=== PATIENT | male | born 1950 | race African-American/Black ===

== ENCOUNTER 2017-08-31 00:35 | Inpatient (IN) | payer MEDICARE, OTHER, MEDICAID ==
--- NOTE | 2017-08-31 00:51 | ED Physician Chart ---
ED Chief Complaint/HPI - Patient Information Date Seen:: 08/31/17 Time Seen:: 00:51 Chief Complaint:: Increased agitation History of Present Illness:: 67 yo male was brought from SNF to ER for evaluation of increased agitation and aggressiveness towards nursing staff. ED Review of Systems - Review of Systems General/Constitutional: No fever Skin: No skin lesions Head: No headache Eyes: No loss of vision ENT: No nasal drainage Neck: No neck pain Cardio Vascular: No chest pain Pulmonary: No SOB GI: No nausea, No vomiting Musculoskeletal: No bone or joint pain Psychiatric: Prior psych history Neurological: Seizure, Confusion ED Past Medical History - Past Medical History Past Medical History: HTN, Asthma/COPD, CVA/TIA, Dyslipidemia, Seizures, Other ( Dysphagia, osteoporosis, glaucoma, encephalopathy) Social History: Non Smoker, No Alcohol, No Drug Use Psychiatricy History: Other (psychosis) Family Medical History - Family Member Mother History Unknown: Yes Ethnicity: Unknown ED Physical Exam - Physical Examination Other Gen/Cons comments:: Patient is hard to arouse due to medication given at SNF. Head: Atraumatic Eyes: PERRL Skin: No ecchymosis ENMT: Nasal exam nl Neck: No nuchal rigidity Respiratory: No Wheeze/Rhonchi/Rales Cardio Vascular: RRR, No murmur, gallop, rubs, NL S1 S2 GI: No tenderness/rebounding/guarding Extremities: No edema Other Neuro/Psych comments:: obtunded ED Labs/Radiology/EKG Results - Radiology Results Results: CXR: no acute disease ED Assessment - Assessment General Assessment: Psychosis Hyponatremia Assessment/Comments:: CBC, CMP, UA CXR, EKG NS 1L IV bolus Patient is cleared for geropsych admit ED Septic Shock - . Is Septic Shock (SBP<90, OR Lactate>4 mmol\L) present?: No ED Reassessment (Disposition) - Reassessment Reassessment Condition:: Unchanged - Patient Disposition Discharge/Transfer:: Geropsych w/in this hosp Admitting Medical Physician:: De Michaud Admitting Psych Physician:: Ally Ott ED Discharge Plan - Patient Disposition Admit/Discharge/Transfer: Other Care w/in this hosp Condition at Disposition: Guarded
[2017-08-31 01:26] LABS: % BASOPHILS 0.8 % (0.0-2.0); % EOSINOPHILS 3.6 % (0.0-5.0); % LYMPHOCYTES 19.6 % (20.0-50.0); % MONOCYTES 10.8 % (2.0-10.0); % NEUTROPHILS 65.2 % (40.0-80.0); BASOPHILE ABSOLUTE 0.1 Th/cumm (0-0.2); EOSINOPHILE ABSOLUTE 0.3 Th/cmm (0.1-0.4); HEMATOCRIT 40.5 % (41.0-60); HEMOGLOBIN 13.7 gm/dL (12-16); LYMPHOCYTE ABSOLUTE 1.4 Th/cmm (1.5-3.0); MEAN CELL VOLUME 93.2 fl (80-99); MEAN CORPUSCULAR HEMOGLOBIN 31.6 pg (27.0-31.0); MEAN CORPUSCULAR HGB CONC 33.9 pg (28.0-36.0); MEAN PLATELET VOLUME 7.3 fl; MONOCYTE ABSOLUTE 0.8 Th/cmm (0.3-1.0); NEUTROPHILE ABSOLUTE 4.4 Th/cmm (1.8-8.0); PLATELET COUNT 256 Th/cmm (150-400); RED BLOOD COUNT 4.35 Mil/cmm (3.80-5.80); RED CELL DISTRIBUTION WIDTH 13.5 % (11.5-20.0)
[2017-08-31 01:39] LABS: ALB/GLOB RATIO 1.8 (1.0-1.8); ALBUMIN 3.7 gm/dL (4.2-5.5); ALKALINE PHOSPHATASE 57 U/L (34-104); ANION GAP 9.9 (7.0-16.0); BILIRUBIN,TOTAL 0.3 mg/dL (0.3-1.0); BUN - UREA NITROGEN 8 mg/dL (7-25); CALCIUM SERUM 8.6 mg/dL (8.6-10.3); CARBON DIOXIDE 23.7 mEq/L (21.0-31.0); CHLORIDE 100 mEq/L (98-107); CREATININE - SERUM 0.5 mg/dL (0.7-1.3); GFR AFRICAN-AMERICAN > 60.0 ml/min (>90); GFR NON AFRICAN-AMERICAN > 60.0 ml/min; GLUCOSE 118 mg/dL (70-105); POTASSIUM SERUM 3.6 mEq/L (3.5-5.1); SGOT 23 U/L (13-39); SGPT/ALT 13 U/L (7-52); SODIUM SERUM 130 mEq/L (136-145); TOTAL PROTEIN,SERUM 5.8 gm/dL (6.0-8.3)
[2017-08-31] MEDS ORDERED: Sodium Chloride 0.9% 1,000 ML IV ONE (01:56)
[2017-08-31] MEDS ORDERED: Magnesium Hydroxide (MOM) 30 mL UDC PO PRN (02:15)
[2017-08-31] MEDS ORDERED: Maalox 30 mL Cup PO PRN (02:15)
[2017-08-31] MEDS ORDERED: Albuterol Nebulizer 2.5mg/3mL HHN PRN (02:20)
[2017-08-31] MEDS ORDERED: Hydrocodone/APAP 10 mg/325 mg Tab PO PRN (02:20)
[2017-08-31 02:26] VITALS: BP 125/78
--- NOTE | 2017-08-31 07:57 | Diagnostic Imaging Report ---
Exam: Chest x-ray single view. HISTORY: Shortness of breath. Findings: Frontal examination of chest reviewed the study demonstrates no acute pulmonic infiltrates or effusions. Mediastinal structures midline the heart is not enlarged. Bony thorax is intact. The patient significantly rotated. Left atelectatic changes cannot be excluded. If clinically indicated follow-up examination recommended. IMPRESSION: Significant rotation of patient, no acute disease, left basilar atelectasis cannot be excluded.
[2017-08-31] MEDS: Aspirin 81mg Chewable Tab PO SCH (08:13)
[2017-08-31] MEDS: Multivitamin w/ Minerals Tab PO SCH (08:13)
--- NOTE | 2017-08-31 13:54 | History and Physical ---
History of Present Illness - HPI Chief Complaint: agitation HPI: This is a 67 year old male who is a residential resident admitted to the geropsych unit due to agitation towards nursing staff at the SNF. Vital Signs: Last Vital Signs Temp 97.6 F 08/31/17 06:56 Pulse 84 08/31/17 09:12 Resp 18 08/31/17 07:50 BP 130/82 08/31/17 09:12 Pulse Ox 96 08/31/17 07:50 Past Medical History Other History: HTN, Asthma/COPD, CVA/TIA, Dyslipidemia, Seizures, Dysphagia, osteoporosis, glaucoma, encephalopathy Family Medical History - Family Member Mother History Unknown: Yes Ethnicity: Unknown Living Status: Unknown Hx Family Cancer: (unknown) Hx Family Coronary Artery Disease: (unknown) Hx Family Congestive Heart Failure: (unknown) Hx Family Hypertension: (unknown) Hx Family Stroke: (unknown) Hx Family Diabetes: (unknown) Hx Family Seizures: (unknown) Hx Family Dementia: (unknown) Hx Family AIDS: (unknown) Hx Family HIV: No Hx Family COPD: (unknown) Hx Family Hepatitis: (unknown) Hx Family Psychiatric Problems: (unknown) Hx Family Tuberculosis: (unknown) Social History Smoke: No Alcohol: None Drugs: None Lives: Custodial - Medications Home Medications: Home Medication Medication Instructions Recorded Type Albuterol Nebulizer 2.5mg/3mL 2.5 mg IH Q6HR PRN 08/31/17 History [Albuterol Neb UD*] Aspirin [Aspirin Chewable] 81 mg PO DAILY 08/31/17 History Atorvastatin Calcium [Lipitor] 80 mg PO HS 08/31/17 History Docusate Sodium [Colace] 100 mg PO DAILY 08/31/17 History Gabapentin 300 mg PO DAILY 08/31/17 History Hydrocodone/APAP 10 mg/325 mg 1 tab PO Q8H PRN 08/31/17 History [[place] 10 mg/325 mg] Labetalol HCl 300 mg PO BID 08/31/17 History Latanoprost 0.005% Ophth Soln 1 drop EACH EYE HS 08/31/17 History [Xalatan 0.005% Ophth Soln] Levetiracetam [Keppra] 750 mg PO BID 08/31/17 History Multivitamin w/ Minerals 1 tab PO DAILY 08/31/17 History [Theragran M] Polyvinyl Alcohol Ophth Soln 1 drop EACH EYE Q2H PRN 08/31/17 History [Artificial Tears Ophth Soln] Sennosides A and B [Senna] 8.6 mg PO HS 08/31/17 History - Allergies Allergies/Adverse Reactions: Allergies Allergy/AdvReac Type Severity Reaction Status Date / Time No Known Allergies Allergy Verified 08/31/17 01:00 Review of Systems - Review of Systems Constitutional: Report: No Significant Eyes: Report: No Significant ENT: Report: No Significant Respiratory: Report: No Significant Cardiovascular: Report: No Significant Gastrointestinal: Report: No Significant Genitourinary: Report: No Significant Musculoskeletal: Report: No Significant Skin: Report: No Significant Neurological: Report: No Significant Physical Exam - Physical Exam HEENT: Report: Ears Nose Throat within normal limits Neck: Report: Within normal limits Cardiovascular Systems: Report: +s1/s2 noted Respiratory: Report: Breath Sounds are within normal limits Abdomen: Report: Non-tender to palpation Back: Report: Inspection of back is within normal limits. Extremities: Report: Non-tender to palpation. Skin: Report: Color of skin is within normal limits Neuro/Psych: Report: Mood affect is within normal limits - Assessment Assessment: HTN Asthma/COPD hx CVA/TIA Dyslipidemia Seizures Dysphagia osteoporosis glaucoma - Plan Plan: seizure precautions aspiration precautions continue current plan of care
--- NOTE | 2017-08-31 23:46 | Psychosocial Evaluation ---
DATE OF SERVICE: 08/31/2017 IDENTIFYING DATA: The patient is a 67-year-old -[place] male, resident of [facility]. Information is obtained by directly interviewing the patient as well as reviewing the admission papers. The patient is admitted here on a voluntary basis in view of his agitation and aggressive behavior towards the staff members. His chart is reviewed. The patient is interviewed. The patient is lying down in the bed and has been mumbling to self. The patient's articulation is not very clear. The patient, however, mentioned that he had a stroke and he has been at a [facility]. The patient mentions that his family is aware that he is in the hospital. Prior to the hospitalization, the patient has been on gabapentin 300 mg daily and is also getting albuterol and atorvastatin. The patient is also on high blood pressure medication and labetalol. The patient is stating that he has been getting easily upset and could not figure it out and that is the reason why he has to be in here. The patient at this time is not able to provide much of the information. PAST PSYCHIATRIC HISTORY: Details are not known. MEDICAL HISTORY: Physical examination is requested to be done by Dr. Michaud. SUBSTANCE ABUSE HISTORY: None. PHYSICAL OR SEXUAL ABUSE HISTORY: None. LEGAL PROBLEMS: None at this time. STRENGTH AND ASSETS: The patient is motivated. MENTAL STATUS EXAMINATION: The patient is a 67-year-old, looking his stated age, superficially cooperative. Eye contact is fair. Mood is irritable. Affect is constricted. The patient is feeling frustrated. The patient's coping skills at this time are noted to be very poor. Insight and judgment are noted to be very poor. He could not figure it out why he has been losing the temper. The patient is currently on gabapentin and we have him on Ativan on a p.r.n. basis. The patient is going to be closely monitored and assessed for impulse control problems. DIAGNOSTIC IMPRESSION: 1. Depressive disorder, not otherwise specified. 1B. Mood disorder, not otherwise specified. AXIS II: None. AXIS III: As per Dr. Michaud. IMMEDIATE TREATMENT PLAN: The patient is going to be closely monitored on the inpatient unit and provided with supportive psychotherapy. Once stabilized, the patient is going to be discharged to the facility for followup on an outpatient basis. JOB# [id number]
[2017-09-01] MEDS: Multivitamin w/ Minerals Tab PO SCH (09:05)
[2017-09-01] MEDS: Aspirin 81mg Chewable Tab PO SCH (09:06)
[2017-09-01] MEDS: Polyvinyl Alcohol Ophth Soln 15 mL Bottle EACH EYE PRN ×2 (09:18→20:57)
--- NOTE | 2017-09-01 13:35 | Internal Medicine Prog Note ---
Internal Medicine Subjective - Subjective Service Date: 09/01/17 Patient seen and examined:: with staff Patient is:: awake Per staff patient has:: no adverse event, tolerating meds Internal Medicine Objective - Results Result Diagrams: 08/31/17 01:04 08/31/17 01:04 Recent Labs: Laboratory Last Values WBC 7.0 Th/cmm (4.8-10.8) 08/31/17 01:04 RBC 4.35 Mil/cmm (3.80-5.80) 08/31/17 01:04 Hgb 13.7 gm/dL (12-16) 08/31/17 01:04 Hct 40.5 % (41.0-60) L 08/31/17 01:04 MCV 93.2 fl (80-99) 08/31/17 01:04 MCH 31.6 pg (27.0-31.0) H 08/31/17 01:04 MCHC Differential 33.9 pg (28.0-36.0) 08/31/17 01:04 RDW 13.5 % (11.5-20.0) 08/31/17 01:04 Plt Count 256 Th/cmm (150-400) 08/31/17 01:04 MPV 7.3 fl 08/31/17 01:04 Neutrophils % 65.2 % (40.0-80.0) 08/31/17 01:04 Lymphocytes % 19.6 % (20.0-50.0) L 08/31/17 01:04 Monocytes % 10.8 % (2.0-10.0) H 08/31/17 01:04 Eosinophils % 3.6 % (0.0-5.0) 08/31/17 01:04 Basophils % 0.8 % (0.0-2.0) 08/31/17 01:04 Sodium 130 mEq/L (136-145) L 08/31/17 01:04 Potassium 3.6 mEq/L (3.5-5.1) 08/31/17 01:04 Chloride 100 mEq/L (98-107) 08/31/17 01:04 Carbon Dioxide 23.7 mEq/L (21.0-31.0) 08/31/17 01:04 Anion Gap 9.9 (7.0-16.0) 08/31/17 01:04 BUN 8 mg/dL (7-25) 08/31/17 01:04 Creatinine 0.5 mg/dL (0.7-1.3) L 08/31/17 01:04 Est GFR ( Amer) > 60.0 ml/min (>90) 08/31/17 01:04 Est GFR (Non-Af Amer) > 60.0 ml/min 08/31/17 01:04 BUN/Creatinine Ratio 16.0 08/31/17 01:04 Glucose 118 mg/dL (70-105) H 08/31/17 01:04 Calcium 8.6 mg/dL (8.6-10.3) 08/31/17 01:04 Total Bilirubin 0.3 mg/dL (0.3-1.0) 08/31/17 01:04 AST 23 U/L (13-39) 08/31/17 01:04 ALT 13 U/L (7-52) 08/31/17 01:04 Alkaline Phosphatase 57 U/L (34-104) 08/31/17 01:04 Total Protein 5.8 gm/dL (6.0-8.3) L 08/31/17 01:04 Albumin 3.7 gm/dL (4.2-5.5) L 08/31/17 01:04 Globulin 2.1 gm/dL 08/31/17 01:04 Albumin/Globulin Ratio 1.8 (1.0-1.8) 08/31/17 01:04 TSH 0.79 uIU/ml (0.34-5.60) 08/31/17 01:04 - Physical Exam Vitals and I&O: Vital Signs Temp 98.0 F 08/31/17 20:00 Pulse 71 09/01/17 09:11 Resp 18 09/01/17 08:00 BP 126/81 09/01/17 09:11 Pulse Ox 97 09/01/17 07:21 Active Medications: Current Medications Acetaminophen (Tylenol) 650 mg PO Q4HR PRN PRN Reason: Mild Pain / Temp above 100 Stop: 10/30/17 02:14 Acetaminophen/Hydrocodone Bitart ([place] 10 Mg/325 Mg) 1 tab PO Q8H PRN PRN Reason: Pain (Moderate) Stop: 03/18/18 02:19 Al Hydrox/Mg Hydrox/Simethicone (Maalox) 30 ml PO Q4HR PRN PRN Reason: GI DISTRESS Stop: 10/30/17 02:14 Albuterol Sulfate (Albuterol 2.5mg/3ml Neb Ud) 2.5 mg HHN Q6HR PRN PRN Reason: Shortness of Breath Stop: 10/30/17 02:19 Artificial Tears (Artificial Tears Ophth Soln) 1 drop EACH EYE Q2H PRN PRN Reason: DRY EYES Stop: 10/30/17 02:19 Last Admin: 09/01/17 09:18 Dose: 1 drop Aspirin (Aspirin Chewable) 81 mg PO DAILY REBECCA Stop: 10/30/17 08:59 Last Admin: 09/01/17 09:06 Dose: 81 mg Atorvastatin Calcium (Lipitor) 80 mg PO HS REBECCA PRN Reason: Protocol Stop: 10/30/17 20:59 Last Admin: 08/31/17 21:09 Dose: 80 mg Citalopram Hydrobromide (Celexa) 10 mg PO DAILY REBECCA PRN Reason: Protocol Stop: 10/31/17 08:59 Last Admin: 09/01/17 12:41 Dose: Not Given Docusate Sodium (Colace) 100 mg PO DAILY REBECCA Stop: 10/30/17 08:59 Last Admin: 09/01/17 09:05 Dose: 100 mg Gabapentin (Neurontin) 300 mg PO DAILY REBECCA Stop: 10/30/17 08:59 Last Admin: 09/01/17 09:05 Dose: 300 mg Labetalol HCl (Trandate) 300 mg PO Q12HR REBECCA Stop: 10/30/17 08:59 Last Admin: 09/01/17 09:11 Dose: 300 mg Latanoprost (Xalatan 0.005% Ophth Soln) 1 drop EACH EYE HS REBECCA Stop: 10/30/17 20:59 Last Admin: 08/31/17 21:09 Dose: 1 drop Levetiracetam (Keppra) 750 mg PO Q12HR REBECCA Stop: 10/30/17 08:59 Last Admin: 09/01/17 09:05 Dose: 750 mg Lorazepam (Ativan) 0.5 mg PO Q4HR PRN; Protocol PRN Reason: Anxiety Stop: 09/30/17 02:14 Magnesium Hydroxide (Milk Of Magnesia) 30 ml PO HS PRN PRN Reason: Constipation Senna (Senna) 8.6 mg PO HS REBECCA Stop: 10/30/17 20:59 Last Admin: 08/31/17 21:09 Dose: 8.6 mg Zolpidem Tartrate (Ambien) 5 mg PO HS PRN PRN Reason: Insomnia Stop: 10/30/17 02:14 General: alert HEENT: NC/AT, PERRLA Neck: Supple Lungs: CTAB Cardiovascular: RRR, Normal S1, Normal S2, without murmur Internal Medicine Assmt/Plan - Assessment Assessment: HTN Asthma/COPD hx CVA/TIA Dyslipidemia Seizures Dysphagia osteoporosis glaucoma - Plan Plan: seizure precautions aspiration precautions continue current plan of care
--- NOTE | 2017-09-01 14:41 | Progress Notes ---
DATE: 09/01/2017 SUBJECTIVE: Staff was spoken to. The patient is interviewed. Mood is noted to be irritable. Affect is constricted. The patient's insight and judgment are noted to be still impaired. The patient has a tendency to lose temper. The patient, however, has been able to comply with the treatment. The patient is stating that he is feeling frustrated after the stroke and has been having difficult time to deal with life. Coping skills at this time are noted to be very poor. Sleep and appetite are also noted to be impaired. The patient is currently here because of the impulsivity, screaming and yelling behavior. ASSESSMENT: The patient is still depressed. PLAN: To start the patient on low dose of the Celexa and encouraged the patient to verbalize the concerns rather than to act out. The patient is going to be provided with the supportive therapy and the patient is going to be closely monitored. [facility]# [id number]
[2017-09-02] MEDS: Multivitamin w/ Minerals Tab PO SCH (08:56)
[2017-09-02] MEDS: Aspirin 81mg Chewable Tab PO SCH (08:57)
--- NOTE | 2017-09-02 14:09 | Internal Medicine Prog Note ---
Internal Medicine Subjective - Subjective Service Date: 09/02/17 Patient is:: awake Per staff patient has:: no adverse event, tolerating meds Internal Medicine Objective - Results Result Diagrams: 08/31/17 01:04 08/31/17 01:04 Recent Labs: Laboratory Last Values WBC 7.0 Th/cmm (4.8-10.8) 08/31/17 01:04 RBC 4.35 Mil/cmm (3.80-5.80) 08/31/17 01:04 Hgb 13.7 gm/dL (12-16) 08/31/17 01:04 Hct 40.5 % (41.0-60) L 08/31/17 01:04 MCV 93.2 fl (80-99) 08/31/17 01:04 MCH 31.6 pg (27.0-31.0) H 08/31/17 01:04 MCHC Differential 33.9 pg (28.0-36.0) 08/31/17 01:04 RDW 13.5 % (11.5-20.0) 08/31/17 01:04 Plt Count 256 Th/cmm (150-400) 08/31/17 01:04 MPV 7.3 fl 08/31/17 01:04 Neutrophils % 65.2 % (40.0-80.0) 08/31/17 01:04 Lymphocytes % 19.6 % (20.0-50.0) L 08/31/17 01:04 Monocytes % 10.8 % (2.0-10.0) H 08/31/17 01:04 Eosinophils % 3.6 % (0.0-5.0) 08/31/17 01:04 Basophils % 0.8 % (0.0-2.0) 08/31/17 01:04 Sodium 130 mEq/L (136-145) L 08/31/17 01:04 Potassium 3.6 mEq/L (3.5-5.1) 08/31/17 01:04 Chloride 100 mEq/L (98-107) 08/31/17 01:04 Carbon Dioxide 23.7 mEq/L (21.0-31.0) 08/31/17 01:04 Anion Gap 9.9 (7.0-16.0) 08/31/17 01:04 BUN 8 mg/dL (7-25) 08/31/17 01:04 Creatinine 0.5 mg/dL (0.7-1.3) L 08/31/17 01:04 Est GFR ( Amer) > 60.0 ml/min (>90) 08/31/17 01:04 Est GFR (Non-Af Amer) > 60.0 ml/min 08/31/17 01:04 BUN/Creatinine Ratio 16.0 08/31/17 01:04 Glucose 118 mg/dL (70-105) H 08/31/17 01:04 Calcium 8.6 mg/dL (8.6-10.3) 08/31/17 01:04 Total Bilirubin 0.3 mg/dL (0.3-1.0) 08/31/17 01:04 AST 23 U/L (13-39) 08/31/17 01:04 ALT 13 U/L (7-52) 08/31/17 01:04 Alkaline Phosphatase 57 U/L (34-104) 08/31/17 01:04 Total Protein 5.8 gm/dL (6.0-8.3) L 08/31/17 01:04 Albumin 3.7 gm/dL (4.2-5.5) L 08/31/17 01:04 Globulin 2.1 gm/dL 08/31/17 01:04 Albumin/Globulin Ratio 1.8 (1.0-1.8) 08/31/17 01:04 TSH 0.79 uIU/ml (0.34-5.60) 08/31/17 01:04 - Physical Exam Vitals and I&O: Vital Signs Temp 97.8 F 09/01/17 20:00 Pulse 83 09/02/17 08:56 Resp 18 09/01/17 21:22 BP 131/86 09/02/17 08:56 Pulse Ox 97 09/01/17 21:22 Intake & Output 09/01/17 09/02/17 09/02/17 18:59 06:59 18:59 Intake Total 120 Balance 120 Intake: Oral 120 Other: # Voids 2 Active Medications: Current Medications Acetaminophen (Tylenol) 650 mg PO Q4HR PRN PRN Reason: Mild Pain / Temp above 100 Stop: 10/30/17 02:14 Acetaminophen/Hydrocodone Bitart ([place] 10 Mg/325 Mg) 1 tab PO Q8H PRN PRN Reason: Pain (Moderate) Stop: 10/30/17 02:19 Al Hydrox/Mg Hydrox/Simethicone (Maalox) 30 ml PO Q4HR PRN PRN Reason: GI DISTRESS Stop: 10/30/17 02:14 Albuterol Sulfate (Albuterol 2.5mg/3ml Neb Ud) 2.5 mg HHN Q6HR PRN PRN Reason: Shortness of Breath Stop: 10/30/17 02:19 Artificial Tears (Artificial Tears Ophth Soln) 1 drop EACH EYE Q2H PRN PRN Reason: DRY EYES Stop: 10/30/17 02:19 Last Admin: 09/01/17 20:57 Dose: 1 drop Aspirin (Aspirin Chewable) 81 mg PO DAILY REBECCA Stop: 10/30/17 08:59 Last Admin: 09/02/17 08:57 Dose: 81 mg Atorvastatin Calcium (Lipitor) 80 mg PO HS REBECCA PRN Reason: Protocol Stop: 10/30/17 20:59 Last Admin: 09/01/17 20:56 Dose: 80 mg Citalopram Hydrobromide (Celexa) 10 mg PO DAILY REBECCA PRN Reason: Protocol Stop: 10/31/17 08:59 Last Admin: 09/02/17 11:10 Dose: 10 mg Docusate Sodium (Colace) 100 mg PO DAILY REBECCA Stop: 10/30/17 08:59 Last Admin: 09/02/17 08:57 Dose: 100 mg Gabapentin (Neurontin) 300 mg PO DAILY REBECCA Stop: 10/30/17 08:59 Last Admin: 09/02/17 08:56 Dose: 300 mg Labetalol HCl (Trandate) 300 mg PO Q12HR REBECCA Stop: 10/30/17 08:59 Last Admin: 09/02/17 08:56 Dose: 300 mg Latanoprost (Xalatan 0.005% Ophth Soln) 1 drop EACH EYE HS REBECCA Stop: 10/30/17 20:59 Last Admin: 09/01/17 20:57 Dose: 1 drop Levetiracetam (Keppra) 750 mg PO Q12HR REBECCA Stop: 10/30/17 08:59 Last Admin: 09/02/17 08:56 Dose: 750 mg Lorazepam (Ativan) 0.5 mg PO Q4HR PRN; Protocol PRN Reason: Anxiety Stop: 09/30/17 02:14 Magnesium Hydroxide (Milk Of Magnesia) 30 ml PO HS PRN PRN Reason: Constipation Senna (Senna) 8.6 mg PO HS REBECCA Stop: 10/30/17 20:59 Last Admin: 09/01/17 20:57 Dose: 8.6 mg Zolpidem Tartrate (Ambien) 5 mg PO HS PRN PRN Reason: Insomnia Stop: 10/30/17 02:14 General: alert HEENT: NC/AT, PERRLA Neck: Supple Lungs: CTAB Cardiovascular: RRR, Normal S1, Normal S2, without murmur Internal Medicine Assmt/Plan - Assessment Assessment: HTN Asthma/COPD hx CVA/TIA Dyslipidemia Seizures Dysphagia osteoporosis glaucoma - Plan Plan: seizure precautions aspiration precautions continue current plan of care
--- NOTE | 2017-09-02 22:43 | Progress Notes ---
DATE: 09/02/2017 SUBJECTIVE: Staff was spoken to. The patient is interviewed. The patient is screaming and yelling, stating that he has diabetes and he cannot walk and he needs a couple of dollars to leave the facility. The patient has no insight into his illness. Coping skills are noted to be very poor. Sleep and appetite also noted to be very poor. The patient is currently on 10 mg citalopram and we will continue the medication and encouraged the patient to verbalize the concerns rather than to act out. Please note that the patient is not ready to be discharged to a lower level of care yet. JOB# [id number]
[2017-09-03] MEDS: Aspirin 81mg Chewable Tab PO SCH (09:42)
[2017-09-03] MEDS: Multivitamin w/ Minerals Tab PO SCH (09:42)
--- NOTE | 2017-09-03 13:07 | Progress Notes ---
DATE: 09/03/2017 SUBJECTIVE: Staff was spoken to. The patient is interviewed. Mood is noted to be anxious and depressed. Affect is constricted. The patient is very withdrawn this morning. Coping skills are noted to be still poor. Insight and judgment also noted to be impaired. No side effects to the medications are noted. The patient has been able to comply with the medication yesterday. The patient has been screaming and yelling and stating that he needs couple of dollars to catch a bus to go to home, but that this morning he seems to be calm. No side effects to the medications are noted. ASSESSMENT: The patient is still having difficult time to cope with the stress. PLAN: To continue the patient with the supportive therapy. I encouraged the patient to verbalize the concerns. The patient is currently on Celexa 10 mg. We will continue the medication and followup. JOB# [id number]
--- NOTE | 2017-09-03 15:55 | Internal Medicine Prog Note ---
Internal Medicine Subjective - Subjective Service Date: 09/03/17 Patient seen and examined:: with staff Patient is:: awake Per staff patient has:: no adverse event, tolerating meds Internal Medicine Objective - Results Result Diagrams: 08/31/17 01:04 08/31/17 01:04 Recent Labs: Laboratory Last Values WBC 7.0 Th/cmm (4.8-10.8) 08/31/17 01:04 RBC 4.35 Mil/cmm (3.80-5.80) 08/31/17 01:04 Hgb 13.7 gm/dL (12-16) 08/31/17 01:04 Hct 40.5 % (41.0-60) L 08/31/17 01:04 MCV 93.2 fl (80-99) 08/31/17 01:04 MCH 31.6 pg (27.0-31.0) H 08/31/17 01:04 MCHC Differential 33.9 pg (28.0-36.0) 08/31/17 01:04 RDW 13.5 % (11.5-20.0) 08/31/17 01:04 Plt Count 256 Th/cmm (150-400) 08/31/17 01:04 MPV 7.3 fl 08/31/17 01:04 Neutrophils % 65.2 % (40.0-80.0) 08/31/17 01:04 Lymphocytes % 19.6 % (20.0-50.0) L 08/31/17 01:04 Monocytes % 10.8 % (2.0-10.0) H 08/31/17 01:04 Eosinophils % 3.6 % (0.0-5.0) 08/31/17 01:04 Basophils % 0.8 % (0.0-2.0) 08/31/17 01:04 Sodium 130 mEq/L (136-145) L 08/31/17 01:04 Potassium 3.6 mEq/L (3.5-5.1) 08/31/17 01:04 Chloride 100 mEq/L (98-107) 08/31/17 01:04 Carbon Dioxide 23.7 mEq/L (21.0-31.0) 08/31/17 01:04 Anion Gap 9.9 (7.0-16.0) 08/31/17 01:04 BUN 8 mg/dL (7-25) 08/31/17 01:04 Creatinine 0.5 mg/dL (0.7-1.3) L 08/31/17 01:04 Est GFR ( Amer) > 60.0 ml/min (>90) 08/31/17 01:04 Est GFR (Non-Af Amer) > 60.0 ml/min 08/31/17 01:04 BUN/Creatinine Ratio 16.0 08/31/17 01:04 Glucose 118 mg/dL (70-105) H 08/31/17 01:04 Calcium 8.6 mg/dL (8.6-10.3) 08/31/17 01:04 Total Bilirubin 0.3 mg/dL (0.3-1.0) 08/31/17 01:04 AST 23 U/L (13-39) 08/31/17 01:04 ALT 13 U/L (7-52) 08/31/17 01:04 Alkaline Phosphatase 57 U/L (34-104) 08/31/17 01:04 Total Protein 5.8 gm/dL (6.0-8.3) L 08/31/17 01:04 Albumin 3.7 gm/dL (4.2-5.5) L 08/31/17 01:04 Globulin 2.1 gm/dL 08/31/17 01:04 Albumin/Globulin Ratio 1.8 (1.0-1.8) 08/31/17 01:04 TSH 0.79 uIU/ml (0.34-5.60) 08/31/17 01:04 Levetiracetam 25.2 ug/mL (10.0-40.0) 08/31/17 01:04 - Physical Exam Vitals and I&O: Vital Signs Temp 96.7 F 09/02/17 08:00 Pulse 79 09/03/17 10:05 Resp 14 09/03/17 08:42 BP 101/69 09/03/17 10:05 Pulse Ox 94 09/03/17 08:35 Intake & Output 09/02/17 09/03/17 09/03/17 18:59 06:59 18:59 Intake Total 750 Balance 750 Intake: Oral 750 Other: # Voids 3 # Bowel Movements 1 Active Medications: Current Medications Acetaminophen (Tylenol) 650 mg PO Q4HR PRN PRN Reason: Mild Pain / Temp above 100 Stop: 10/30/17 02:14 Acetaminophen/Hydrocodone Bitart ([place] 10 Mg/325 Mg) 1 tab PO Q8H PRN PRN Reason: Pain (Moderate) Stop: 10/30/17 02:19 Al Hydrox/Mg Hydrox/Simethicone (Maalox) 30 ml PO Q4HR PRN PRN Reason: GI DISTRESS Stop: 10/30/17 02:14 Albuterol Sulfate (Albuterol 2.5mg/3ml Neb Ud) 2.5 mg HHN Q6HR PRN PRN Reason: Shortness of Breath Stop: 10/30/17 02:19 Artificial Tears (Artificial Tears Ophth Soln) 1 drop EACH EYE Q2H PRN PRN Reason: DRY EYES Stop: 10/30/17 02:19 Last Admin: 09/01/17 20:57 Dose: 1 drop Aspirin (Aspirin Chewable) 81 mg PO DAILY COUNT [facility]CLUD[facility] Stop: 10/30/17 08:59 Last Admin: 09/03/17 09:42 Dose: 81 mg Atorvastatin Calcium (Lipitor) 80 mg PO HS REBECCA PRN Reason: Protocol Stop: 10/30/17 20:59 Last Admin: 09/02/17 21:09 Dose: 80 mg Citalopram Hydrobromide (Celexa) 10 mg PO DAILY REBECCA PRN Reason: Protocol Stop: 10/31/17 08:59 Last Admin: 09/03/17 09:41 Dose: 10 mg Docusate Sodium (Colace) 100 mg PO DAILY REBECCA Stop: 10/30/17 08:59 Last Admin: 09/03/17 09:42 Dose: 100 mg Gabapentin (Neurontin) 300 mg PO DAILY REBECCA Stop: 10/30/17 08:59 Last Admin: 09/03/17 09:42 Dose: 300 mg Labetalol HCl (Trandate) 300 mg PO Q12HR REBECCA Stop: 10/30/17 08:59 Last Admin: 09/03/17 08:36 Dose: Not Given Latanoprost (Xalatan 0.005% Ophth Soln) 1 drop EACH EYE HS REBECCA Stop: 10/30/17 20:59 Last Admin: 09/02/17 21:09 Dose: 1 drop Levetiracetam (Keppra) 750 mg PO Q12HR REBECCA Stop: 10/30/17 08:59 Last Admin: 09/03/17 09:42 Dose: 750 mg Lorazepam (Ativan) 0.5 mg PO Q4HR PRN; Protocol PRN Reason: Anxiety Stop: 09/30/17 02:14 Magnesium Hydroxide (Milk Of Magnesia) 30 ml PO HS PRN PRN Reason: Constipation Senna (Senna) 8.6 mg PO HS REBECCA Stop: 10/30/17 20:59 Last Admin: 09/02/17 21:10 Dose: 8.6 mg Zolpidem Tartrate (Ambien) 5 mg PO HS PRN PRN Reason: Insomnia Stop: 10/30/17 02:14 General: alert HEENT: NC/AT, PERRLA Neck: Supple Lungs: CTAB Cardiovascular: RRR, Normal S1, Normal S2, without murmur Internal Medicine Assmt/Plan - Assessment Assessment: HTN Asthma/COPD hx CVA/TIA Dyslipidemia Seizures Dysphagia osteoporosis glaucoma - Plan Plan: seizure precautions aspiration precautions continue current plan of care
[2017-09-04] MEDS: Aspirin 81mg Chewable Tab PO SCH (09:21)
[2017-09-04] MEDS: Multivitamin w/ Minerals Tab PO SCH (09:21)
--- NOTE | 2017-09-04 09:28 | Progress Notes ---
DATE: 09/04/2017 SUBJECTIVE: Staff was spoken to. The patient is interviewed. Mood is noted to be irritable. Affect is constricted. Coping skills are noted to be poor at this time. Sleep and appetite also noted to be poor. The patient has been less irritable compared to yesterday and also effective medications are noted. The patient is going to be closely monitored at this time and since the patient has been too drowsy and has been having difficult time to cope with the stress, the patient is going to be discontinued off the gabapentin at this time and the hydrocodone is also going to be on hold and the patient is going to be closely monitored and hypertensive medications and followed up with the supportive therapy. JOB# [id number]
--- NOTE | 2017-09-04 13:38 | Internal Medicine Prog Note ---
Internal Medicine Subjective - Subjective Service Date: 09/04/17 Patient is:: awake Per staff patient has:: no adverse event, tolerating meds Internal Medicine Objective - Results Result Diagrams: 08/31/17 01:04 08/31/17 01:04 Recent Labs: Laboratory Last Values WBC 7.0 Th/cmm (4.8-10.8) 08/31/17 01:04 RBC 4.35 Mil/cmm (3.80-5.80) 08/31/17 01:04 Hgb 13.7 gm/dL (12-16) 08/31/17 01:04 Hct 40.5 % (41.0-60) L 08/31/17 01:04 MCV 93.2 fl (80-99) 08/31/17 01:04 MCH 31.6 pg (27.0-31.0) H 08/31/17 01:04 MCHC Differential 33.9 pg (28.0-36.0) 08/31/17 01:04 RDW 13.5 % (11.5-20.0) 08/31/17 01:04 Plt Count 256 Th/cmm (150-400) 08/31/17 01:04 MPV 7.3 fl 08/31/17 01:04 Neutrophils % 65.2 % (40.0-80.0) 08/31/17 01:04 Lymphocytes % 19.6 % (20.0-50.0) L 08/31/17 01:04 Monocytes % 10.8 % (2.0-10.0) H 08/31/17 01:04 Eosinophils % 3.6 % (0.0-5.0) 08/31/17 01:04 Basophils % 0.8 % (0.0-2.0) 08/31/17 01:04 Sodium 130 mEq/L (136-145) L 08/31/17 01:04 Potassium 3.6 mEq/L (3.5-5.1) 08/31/17 01:04 Chloride 100 mEq/L (98-107) 08/31/17 01:04 Carbon Dioxide 23.7 mEq/L (21.0-31.0) 08/31/17 01:04 Anion Gap 9.9 (7.0-16.0) 08/31/17 01:04 BUN 8 mg/dL (7-25) 08/31/17 01:04 Creatinine 0.5 mg/dL (0.7-1.3) L 08/31/17 01:04 Est GFR ( Amer) > 60.0 ml/min (>90) 08/31/17 01:04 Est GFR (Non-Af Amer) > 60.0 ml/min 08/31/17 01:04 BUN/Creatinine Ratio 16.0 08/31/17 01:04 Glucose 118 mg/dL (70-105) H 08/31/17 01:04 Calcium 8.6 mg/dL (8.6-10.3) 08/31/17 01:04 Total Bilirubin 0.3 mg/dL (0.3-1.0) 08/31/17 01:04 AST 23 U/L (13-39) 08/31/17 01:04 ALT 13 U/L (7-52) 08/31/17 01:04 Alkaline Phosphatase 57 U/L (34-104) 08/31/17 01:04 Total Protein 5.8 gm/dL (6.0-8.3) L 08/31/17 01:04 Albumin 3.7 gm/dL (4.2-5.5) L 08/31/17 01:04 Globulin 2.1 gm/dL 08/31/17 01:04 Albumin/Globulin Ratio 1.8 (1.0-1.8) 08/31/17 01:04 TSH 0.79 uIU/ml (0.34-5.60) 08/31/17 01:04 Levetiracetam 25.2 ug/mL (10.0-40.0) 08/31/17 01:04 - Physical Exam Vitals and I&O: Vital Signs Temp 98.4 F 09/03/17 20:00 Pulse 71 09/04/17 09:24 Resp 12 09/04/17 08:02 BP 98/62 09/04/17 09:24 Pulse Ox 94 09/04/17 08:02 Intake & Output 09/03/17 09/04/17 09/04/17 18:59 06:59 18:59 Intake Total 240 120 Balance 240 120 Intake: Oral 240 120 Other: # Voids 1 3 Active Medications: Current Medications Acetaminophen (Tylenol) 650 mg PO Q4HR PRN PRN Reason: Mild Pain / Temp above 100 Stop: 10/30/17 02:14 Al Hydrox/Mg Hydrox/Simethicone (Maalox) 30 ml PO Q4HR PRN PRN Reason: GI DISTRESS Stop: 10/30/17 02:14 Albuterol Sulfate (Albuterol 2.5mg/3ml Neb Ud) 2.5 mg HHN Q6HR PRN PRN Reason: Shortness of Breath Stop: 10/30/17 02:19 Artificial Tears (Artificial Tears Ophth Soln) 1 drop EACH EYE Q2H PRN PRN Reason: DRY EYES Stop: 10/30/17 02:19 Last Admin: 09/01/17 20:57 Dose: 1 drop Aspirin (Aspirin Chewable) 81 mg PO DAILY REBECCA Stop: 10/30/17 08:59 Last Admin: 09/04/17 09:21 Dose: 81 mg Atorvastatin Calcium (Lipitor) 80 mg PO HS REBECCA PRN Reason: Protocol Stop: 10/30/17 20:59 Last Admin: 09/03/17 21:14 Dose: 80 mg Citalopram Hydrobromide (Celexa) 10 mg PO DAILY REBECCA PRN Reason: Protocol Stop: 10/31/17 08:59 Last Admin: 09/04/17 09:22 Dose: 10 mg Docusate Sodium (Colace) 100 mg PO DAILY REBECCA Stop: 10/30/17 08:59 Last Admin: 09/04/17 09:22 Dose: 100 mg Labetalol HCl (Trandate) 300 mg PO Q12HR REBECCA Stop: 10/30/17 08:59 Last Admin: 09/04/17 09:24 Dose: Not Given Latanoprost (Xalatan 0.005% Ophth Soln) 1 drop EACH EYE HS REBECCA Stop: 10/30/17 20:59 Last Admin: 09/03/17 21:13 Dose: 1 drop Levetiracetam (Keppra) 750 mg PO Q12HR REBECCA Stop: 10/30/17 08:59 Last Admin: 09/04/17 09:23 Dose: 750 mg Lorazepam (Ativan) 0.5 mg PO Q4HR PRN; Protocol PRN Reason: Anxiety Stop: 09/30/17 02:14 Magnesium Hydroxide (Milk Of Magnesia) 30 ml PO HS PRN PRN Reason: Constipation Senna (Senna) 8.6 mg PO HS REBECCA Stop: 10/30/17 20:59 Last Admin: 09/03/17 21:17 Dose: 8.6 mg Zolpidem Tartrate (Ambien) 5 mg PO HS PRN PRN Reason: Insomnia Stop: 10/30/17 02:14 General: alert HEENT: NC/AT, PERRLA Neck: Supple Lungs: CTAB Cardiovascular: RRR, Normal S1, Normal S2, without murmur Internal Medicine Assmt/Plan - Assessment Assessment: HTN Asthma/COPD hx CVA/TIA Dyslipidemia Seizures Dysphagia osteoporosis glaucoma - Plan Plan: seizure precautions aspiration precautions continue current plan of care
[2017-09-05] MEDS: Aspirin 81mg Chewable Tab PO SCH (09:54)
[2017-09-05] MEDS: Multivitamin w/ Minerals Tab PO SCH (09:54)
--- NOTE | 2017-09-05 13:41 | Internal Medicine Prog Note ---
Internal Medicine Subjective - Subjective Patient seen and examined:: with staff, chart reviewed Patient is:: awake, verbal, non-interactive Per staff patient has:: no adverse event, no episodes of fall, unstable gait, tolerating meds Internal Medicine Objective - Results Result Diagrams: 08/31/17 01:04 08/31/17 01:04 Recent Labs: Laboratory Last Values WBC 7.0 Th/cmm (4.8-10.8) 08/31/17 01:04 RBC 4.35 Mil/cmm (3.80-5.80) 08/31/17 01:04 Hgb 13.7 gm/dL (12-16) 08/31/17 01:04 Hct 40.5 % (41.0-60) L 08/31/17 01:04 MCV 93.2 fl (80-99) 08/31/17 01:04 MCH 31.6 pg (27.0-31.0) H 08/31/17 01:04 MCHC Differential 33.9 pg (28.0-36.0) 08/31/17 01:04 RDW 13.5 % (11.5-20.0) 08/31/17 01:04 Plt Count 256 Th/cmm (150-400) 08/31/17 01:04 MPV 7.3 fl 08/31/17 01:04 Neutrophils % 65.2 % (40.0-80.0) 08/31/17 01:04 Lymphocytes % 19.6 % (20.0-50.0) L 08/31/17 01:04 Monocytes % 10.8 % (2.0-10.0) H 08/31/17 01:04 Eosinophils % 3.6 % (0.0-5.0) 08/31/17 01:04 Basophils % 0.8 % (0.0-2.0) 08/31/17 01:04 Sodium 130 mEq/L (136-145) L 08/31/17 01:04 Potassium 3.6 mEq/L (3.5-5.1) 08/31/17 01:04 Chloride 100 mEq/L (98-107) 08/31/17 01:04 Carbon Dioxide 23.7 mEq/L (21.0-31.0) 08/31/17 01:04 Anion Gap 9.9 (7.0-16.0) 08/31/17 01:04 BUN 8 mg/dL (7-25) 08/31/17 01:04 Creatinine 0.5 mg/dL (0.7-1.3) L 08/31/17 01:04 Est GFR ( Amer) > 60.0 ml/min (>90) 08/31/17 01:04 Est GFR (Non-Af Amer) > 60.0 ml/min 08/31/17 01:04 BUN/Creatinine Ratio 16.0 08/31/17 01:04 Glucose 118 mg/dL (70-105) H 08/31/17 01:04 Calcium 8.6 mg/dL (8.6-10.3) 08/31/17 01:04 Total Bilirubin 0.3 mg/dL (0.3-1.0) 08/31/17 01:04 AST 23 U/L (13-39) 08/31/17 01:04 ALT 13 U/L (7-52) 08/31/17 01:04 Alkaline Phosphatase 57 U/L (34-104) 08/31/17 01:04 Total Protein 5.8 gm/dL (6.0-8.3) L 08/31/17 01:04 Albumin 3.7 gm/dL (4.2-5.5) L 08/31/17 01:04 Globulin 2.1 gm/dL 08/31/17 01:04 Albumin/Globulin Ratio 1.8 (1.0-1.8) 08/31/17 01:04 TSH 0.79 uIU/ml (0.34-5.60) 08/31/17 01:04 Levetiracetam 25.2 ug/mL (10.0-40.0) 08/31/17 01:04 - Physical Exam Vitals and I&O: Vital Signs Temp 97.3 F 09/04/17 14:13 Pulse 82 09/05/17 10:00 Resp 12 09/05/17 08:29 BP 107/69 09/05/17 10:00 Pulse Ox 94 09/05/17 08:29 Intake & Output 09/04/17 09/05/17 09/05/17 18:59 06:59 18:59 Intake Total 500 Balance 500 Intake: Oral 500 Other: # Voids 2 Active Medications: Current Medications Acetaminophen (Tylenol) 650 mg PO Q4HR PRN PRN Reason: Mild Pain / Temp above 100 Stop: 10/30/17 02:14 Al Hydrox/Mg Hydrox/Simethicone (Maalox) 30 ml PO Q4HR PRN PRN Reason: GI DISTRESS Stop: 10/30/17 02:14 Albuterol Sulfate (Albuterol 2.5mg/3ml Neb Ud) 2.5 mg HHN Q6HR PRN PRN Reason: Shortness of Breath Stop: 10/30/17 02:19 Artificial Tears (Artificial Tears Ophth Soln) 1 drop EACH EYE Q2H PRN PRN Reason: DRY EYES Stop: 10/30/17 02:19 Last Admin: 09/01/17 20:57 Dose: 1 drop Aspirin (Aspirin Chewable) 81 mg PO DAILY [facility] Stop: 10/30/17 08:59 Last Admin: 09/05/17 09:54 Dose: 81 mg Atorvastatin Calcium (Lipitor) 80 mg PO HS REBECCA PRN Reason: Protocol Stop: 10/30/17 20:59 Last Admin: 09/04/17 21:21 Dose: 80 mg Citalopram Hydrobromide (Celexa) 10 mg PO DAILY REBECCA PRN Reason: Protocol Stop: 10/31/17 08:59 Last Admin: 09/05/17 09:54 Dose: 10 mg Docusate Sodium (Colace) 100 mg PO DAILY REBECCA Stop: 10/30/17 08:59 Last Admin: 09/05/17 09:54 Dose: 100 mg Labetalol HCl (Trandate) 300 mg PO Q12HR REBECCA Stop: 10/30/17 08:59 Last Admin: 09/05/17 10:00 Dose: 300 mg Latanoprost (Xalatan 0.005% Ophth Soln) 1 drop EACH EYE HS REBECCA Stop: 10/30/17 20:59 Last Admin: 09/04/17 21:21 Dose: 1 drop Levetiracetam (Keppra) 750 mg PO Q12HR REBECCA Stop: 10/30/17 08:59 Last Admin: 09/05/17 09:53 Dose: 750 mg Lorazepam (Ativan) 0.5 mg PO Q4HR PRN; Protocol PRN Reason: Anxiety Stop: 09/30/17 02:14 Magnesium Hydroxide (Milk Of Magnesia) 30 ml PO HS PRN PRN Reason: Constipation Senna (Senna) 8.6 mg PO HS REBECCA Stop: 10/30/17 20:59 Last Admin: 09/04/17 21:22 Dose: 8.6 mg Zolpidem Tartrate (Ambien) 5 mg PO HS PRN PRN Reason: Insomnia Stop: 10/30/17 02:14 General: demented HEENT: NC/AT, PERRLA Neck: Supple Lungs: CTAB Cardiovascular: RRR, Normal S1, Normal S2, without murmur Abdomen: soft, non-tender, globular Neurological: lethargic, disorganized Internal Medicine Assmt/Plan - Assessment Assessment: - Assessment Assessment: HTN Asthma/COPD hx CVA/TIA Dyslipidemia Seizures Dysphagia osteoporosis glaucoma - Plan Plan: seizure precautions aspiration precautions continue current plan of care - Plan Plan: see orders
--- NOTE | 2017-09-05 19:56 | Progress Notes ---
DATE: 09/05/2017 SUBJECTIVE: Staff are spoken to. The patient is interviewed. Mood is noted to be irritable. Affect is constricted. The patient is isolative and withdrawn. The patient is not presenting with any major behavioral problems, but the patient is too quiet. No side effects to the medications are noted. The patient has been taken off the pain medication as well as gabapentin. The patient has been able to tolerate without any pain medications. ASSESSMENT: The patient is stabilizing. PLAN: To continue the patient with the supportive therapy and to encourage the patient to verbalize the concerns and to act out. JOB# [id number]
[2017-09-06] MEDS: Multivitamin w/ Minerals Tab PO SCH (09:15)
[2017-09-06] MEDS: Aspirin 81mg Chewable Tab PO SCH (09:19)
--- NOTE | 2017-09-06 13:08 | Internal Medicine Prog Note ---
Internal Medicine Subjective - Subjective Patient seen and examined:: with staff, chart reviewed Patient is:: awake, verbal, non-interactive Per staff patient has:: no adverse event, no episodes of fall, unstable gait, tolerating meds Internal Medicine Objective - Results Result Diagrams: 08/31/17 01:04 08/31/17 01:04 Recent Labs: Laboratory Last Values WBC 7.0 Th/cmm (4.8-10.8) 08/31/17 01:04 RBC 4.35 Mil/cmm (3.80-5.80) 08/31/17 01:04 Hgb 13.7 gm/dL (12-16) 08/31/17 01:04 Hct 40.5 % (41.0-60) L 08/31/17 01:04 MCV 93.2 fl (80-99) 08/31/17 01:04 MCH 31.6 pg (27.0-31.0) H 08/31/17 01:04 MCHC Differential 33.9 pg (28.0-36.0) 08/31/17 01:04 RDW 13.5 % (11.5-20.0) 08/31/17 01:04 Plt Count 256 Th/cmm (150-400) 08/31/17 01:04 MPV 7.3 fl 08/31/17 01:04 Neutrophils % 65.2 % (40.0-80.0) 08/31/17 01:04 Lymphocytes % 19.6 % (20.0-50.0) L 08/31/17 01:04 Monocytes % 10.8 % (2.0-10.0) H 08/31/17 01:04 Eosinophils % 3.6 % (0.0-5.0) 08/31/17 01:04 Basophils % 0.8 % (0.0-2.0) 08/31/17 01:04 Sodium 130 mEq/L (136-145) L 08/31/17 01:04 Potassium 3.6 mEq/L (3.5-5.1) 08/31/17 01:04 Chloride 100 mEq/L (98-107) 08/31/17 01:04 Carbon Dioxide 23.7 mEq/L (21.0-31.0) 08/31/17 01:04 Anion Gap 9.9 (7.0-16.0) 08/31/17 01:04 BUN 8 mg/dL (7-25) 08/31/17 01:04 Creatinine 0.5 mg/dL (0.7-1.3) L 08/31/17 01:04 Est GFR ( Amer) > 60.0 ml/min (>90) 08/31/17 01:04 Est GFR (Non-Af Amer) > 60.0 ml/min 08/31/17 01:04 BUN/Creatinine Ratio 16.0 08/31/17 01:04 Glucose 118 mg/dL (70-105) H 08/31/17 01:04 Calcium 8.6 mg/dL (8.6-10.3) 08/31/17 01:04 Total Bilirubin 0.3 mg/dL (0.3-1.0) 08/31/17 01:04 AST 23 U/L (13-39) 08/31/17 01:04 ALT 13 U/L (7-52) 08/31/17 01:04 Alkaline Phosphatase 57 U/L (34-104) 08/31/17 01:04 Total Protein 5.8 gm/dL (6.0-8.3) L 08/31/17 01:04 Albumin 3.7 gm/dL (4.2-5.5) L 08/31/17 01:04 Globulin 2.1 gm/dL 08/31/17 01:04 Albumin/Globulin Ratio 1.8 (1.0-1.8) 08/31/17 01:04 TSH 0.79 uIU/ml (0.34-5.60) 08/31/17 01:04 Levetiracetam 25.2 ug/mL (10.0-40.0) 08/31/17 01:04 - Physical Exam Vitals and I&O: Vital Signs Temp 98.6 F 09/05/17 16:38 Pulse 73 09/06/17 09:19 Resp 16 09/06/17 11:07 BP 99/60 09/06/17 09:19 Pulse Ox 99 09/06/17 07:05 Active Medications: Current Medications Acetaminophen (Tylenol) 650 mg PO Q4HR PRN PRN Reason: Mild Pain / Temp above 100 Stop: 10/30/17 02:14 Al Hydrox/Mg Hydrox/Simethicone (Maalox) 30 ml PO Q4HR PRN PRN Reason: GI DISTRESS Stop: 10/30/17 02:14 Albuterol Sulfate (Albuterol 2.5mg/3ml Neb Ud) 2.5 mg HHN Q6HR PRN PRN Reason: Shortness of Breath Stop: 10/30/17 02:19 Artificial Tears (Artificial Tears Ophth Soln) 1 drop EACH EYE Q2H PRN PRN Reason: DRY EYES Stop: 10/30/17 02:19 Last Admin: 09/01/17 20:57 Dose: 1 drop Aspirin (Aspirin Chewable) 81 mg PO DAILY [facility] Stop: 10/30/17 08:59 Last Admin: 09/06/17 09:19 Dose: 81 mg Atorvastatin Calcium (Lipitor) 80 mg PO HS REBECCA PRN Reason: Protocol Stop: 10/30/17 20:59 Last Admin: 09/05/17 21:34 Dose: 80 mg Citalopram Hydrobromide (Celexa) 10 mg PO DAILY REBECCA PRN Reason: Protocol Stop: 10/31/17 08:59 Last Admin: 09/06/17 09:15 Dose: 10 mg Docusate Sodium (Colace) 100 mg PO DAILY REBECCA Stop: 10/30/17 08:59 Last Admin: 09/06/17 09:17 Dose: 100 mg Labetalol HCl (Trandate) 300 mg PO Q12HR REBECCA Stop: 10/30/17 08:59 Last Admin: 09/06/17 09:19 Dose: Not Given Latanoprost (Xalatan 0.005% Ophth Soln) 1 drop EACH EYE HS REBECCA Stop: 10/30/17 20:59 Last Admin: 09/05/17 21:37 Dose: 1 drop Levetiracetam (Keppra) 750 mg PO Q12HR REBECCA Stop: 10/30/17 08:59 Last Admin: 09/06/17 09:18 Dose: 750 mg Lorazepam (Ativan) 0.5 mg PO Q4HR PRN; Protocol PRN Reason: Anxiety Stop: 09/30/17 02:14 Magnesium Hydroxide (Milk Of Magnesia) 30 ml PO HS PRN PRN Reason: Constipation Senna (Senna) 8.6 mg PO HS REBECCA Stop: 10/30/17 20:59 Last Admin: 09/05/17 21:34 Dose: 8.6 mg Zolpidem Tartrate (Ambien) 5 mg PO HS PRN PRN Reason: Insomnia Stop: 10/30/17 02:14 General: demented HEENT: NC/AT, PERRLA Neck: Supple Lungs: CTAB Cardiovascular: RRR, Normal S1, Normal S2, without murmur Abdomen: soft, non-tender, globular Neurological: lethargic, disorganized Internal Medicine Assmt/Plan - Assessment Assessment: - Assessment Assessment: HTN Asthma/COPD hx CVA/TIA Dyslipidemia Seizures Dysphagia osteoporosis glaucoma - Plan Plan: seizure precautions aspiration precautions continue current plan of care - Plan Plan: see orders Nutritional Asmnt/Malnutr-PDOC - Dietary Evaluation Malnutrition Findings (Please click <Entered> for more info): Nutritional Asmnt/Malnutrition Start: 09/05/17 18: 14 Text: Status: Complete Freq: Document 09/05/17 18:14 [email or web address] (Rec: 09/05/17 18:18 [id number]) Nutritional Asmnt/Malnutrition Patient General Information Nutritional Screening Moderate Risk Diagnosis psychosis Pertinent Medical Hx/Surgical Hx HTN, asthma/COPD, CVA/TIA, dyslipidemia, seizures, dysphagia, Osteoporosis, glaucoma, encephalopathy Subjective Information Pt seen sleeping at time of visit. Pernotes, PO itnake 75% x 3 meals on 09/04 Current Diet Order/ Nutrition Support [facility] soft chopped ARNULFO Pertinent Medications colace, keppra, senna Pertinent Labs 08/31 Na 130, Cr 0.5, Glucose 118, Alb 3.7 Nutritional Hx/Data Height 1.73 m Height (Calculated Centimeters) 172.7 Current Weight (lbs) 68.039 kg Weight (Calculated Kilograms) 68.0 Weight (Calculated Grams) 01556.9 [place] Body Weight 154 % [place] Body Weight 97 Body Mass Index (BMI) 22.8 Weight Status Approriate GI Symptoms GI Symptoms None Last BM 09/02 Difficult in: None Skin Integrity/Comment: scar, dryness Estimated Nutritional Goals BEE in Kcals: Using Current wt Calories/Kcals/Kg 25-30 Kcals Calculated 2949-3608 Protein: Using Current wt Protein g/k Protein Calculated 68 Fluid: ml 1700-2040ml (1ml/kcal) Nutritional Problem No current Nutrition Prob Problem N/A Malnutrition Alert Is there a minimum of two criteria No selected? Query Text:Check all the applicable criteria. A minimum of two criteria are recommended for diagnosis of either severe or non-severe malnutrition. Intervention/Recommendation Comments 1. Continue with current diet as ordered. 2. Monitor PO intake, wt, labs and skin integrity 3. F/U as low risk in 7 days, 09/12 Expected Outcomes/Goals Expected Outcomes/Goals 1. PO intake to meet at least 75% of nutritional needs. 2. Wt stability, skin to remain intact, labs to approach WNL.
--- NOTE | 2017-09-07 03:32 | Progress Notes ---
DATE: 09/06/2017 SUBJECTIVE: Staff was spoken to. The patient is interviewed. Mood is noted to be less irritable. Affect is appropriate. Insight and judgment at this time are noted to be improving. Impulse control seems to be fair, but the patient seems to be not presenting with any major problems. No side effects to the medications are noted. The patient is being closely monitored because the sodium is very low at 130. The patient is being monitored for any hyponatremia and related seizures. The patient is encouraged to participate in the groups and verbalize the concerns. JOB# [id number]
[2017-09-07] MEDS: Multivitamin w/ Minerals Tab PO SCH (08:36)
[2017-09-07] MEDS: Aspirin 81mg Chewable Tab PO SCH (08:37)
--- NOTE | 2017-09-07 13:45 | Internal Medicine Prog Note ---
Internal Medicine Subjective - Subjective Service Date: 09/07/17 Patient is:: awake, verbal, non-interactive Per staff patient has:: no adverse event, no episodes of fall, unstable gait, tolerating meds Internal Medicine Objective - Results Result Diagrams: 08/31/17 01:04 08/31/17 01:04 Recent Labs: Laboratory Last Values WBC 7.0 Th/cmm (4.8-10.8) 08/31/17 01:04 RBC 4.35 Mil/cmm (3.80-5.80) 08/31/17 01:04 Hgb 13.7 gm/dL (12-16) 08/31/17 01:04 Hct 40.5 % (41.0-60) L 08/31/17 01:04 MCV 93.2 fl (80-99) 08/31/17 01:04 MCH 31.6 pg (27.0-31.0) H 08/31/17 01:04 MCHC Differential 33.9 pg (28.0-36.0) 08/31/17 01:04 RDW 13.5 % (11.5-20.0) 08/31/17 01:04 Plt Count 256 Th/cmm (150-400) 08/31/17 01:04 MPV 7.3 fl 08/31/17 01:04 Neutrophils % 65.2 % (40.0-80.0) 08/31/17 01:04 Lymphocytes % 19.6 % (20.0-50.0) L 08/31/17 01:04 Monocytes % 10.8 % (2.0-10.0) H 08/31/17 01:04 Eosinophils % 3.6 % (0.0-5.0) 08/31/17 01:04 Basophils % 0.8 % (0.0-2.0) 08/31/17 01:04 Sodium 130 mEq/L (136-145) L 08/31/17 01:04 Potassium 3.6 mEq/L (3.5-5.1) 08/31/17 01:04 Chloride 100 mEq/L (98-107) 08/31/17 01:04 Carbon Dioxide 23.7 mEq/L (21.0-31.0) 08/31/17 01:04 Anion Gap 9.9 (7.0-16.0) 08/31/17 01:04 BUN 8 mg/dL (7-25) 08/31/17 01:04 Creatinine 0.5 mg/dL (0.7-1.3) L 08/31/17 01:04 Est GFR ( Amer) > 60.0 ml/min (>90) 08/31/17 01:04 Est GFR (Non-Af Amer) > 60.0 ml/min 08/31/17 01:04 BUN/Creatinine Ratio 16.0 08/31/17 01:04 Glucose 118 mg/dL (70-105) H 08/31/17 01:04 POC Glucose 151 MG/DL (70-105) H 09/06/17 12:24 Calcium 8.6 mg/dL (8.6-10.3) 08/31/17 01:04 Total Bilirubin 0.3 mg/dL (0.3-1.0) 08/31/17 01:04 AST 23 U/L (13-39) 08/31/17 01:04 ALT 13 U/L (7-52) 08/31/17 01:04 Alkaline Phosphatase 57 U/L (34-104) 08/31/17 01:04 Total Protein 5.8 gm/dL (6.0-8.3) L 08/31/17 01:04 Albumin 3.7 gm/dL (4.2-5.5) L 08/31/17 01:04 Globulin 2.1 gm/dL 08/31/17 01:04 Albumin/Globulin Ratio 1.8 (1.0-1.8) 08/31/17 01:04 TSH 0.79 uIU/ml (0.34-5.60) 08/31/17 01:04 Levetiracetam 25.2 ug/mL (10.0-40.0) 08/31/17 01:04 - Physical Exam Vitals and I&O: Vital Signs Temp 97.2 F 09/06/17 19:53 Pulse 70 09/07/17 08:35 Resp 18 09/06/17 19:53 BP 116/79 09/07/17 08:35 Pulse Ox 95 09/06/17 19:53 Intake & Output 09/06/17 09/07/17 09/07/17 18:59 06:59 18:59 Intake Total 250 Balance 250 Intake: Oral 250 Other: # Voids 2 Active Medications: Current Medications Acetaminophen (Tylenol) 650 mg PO Q4HR PRN PRN Reason: Mild Pain / Temp above 100 Stop: 10/30/17 02:14 Al Hydrox/Mg Hydrox/Simethicone (Maalox) 30 ml PO Q4HR PRN PRN Reason: GI DISTRESS Stop: 10/30/17 02:14 Albuterol Sulfate (Albuterol 2.5mg/3ml Neb Ud) 2.5 mg HHN Q6HR PRN PRN Reason: Shortness of Breath Stop: 10/30/17 02:19 Artificial Tears (Artificial Tears Ophth Soln) 1 drop EACH EYE Q2H PRN PRN Reason: DRY EYES Stop: 10/30/17 02:19 Last Admin: 09/01/17 20:57 Dose: 1 drop Aspirin (Aspirin Chewable) 81 mg PO DAILY [facility] Stop: 10/30/17 08:59 Last Admin: 09/07/17 08:37 Dose: 81 mg Atorvastatin Calcium (Lipitor) 80 mg PO HS REBECCA PRN Reason: Protocol Stop: 10/30/17 20:59 Last Admin: 09/06/17 21:06 Dose: 80 mg Docusate Sodium (Colace) 100 mg PO DAILY REBECCA Stop: 10/30/17 08:59 Last Admin: 09/07/17 08:36 Dose: 100 mg Labetalol HCl (Trandate) 300 mg PO Q12HR REBECCA Stop: 10/30/17 08:59 Last Admin: 09/07/17 08:35 Dose: 300 mg Latanoprost (Xalatan 0.005% Ophth Soln) 1 drop EACH EYE HS REBECCA Stop: 10/30/17 20:59 Last Admin: 09/06/17 21:06 Dose: 1 drop Levetiracetam (Keppra) 750 mg PO Q12HR REBECCA Stop: 10/30/17 08:59 Last Admin: 09/07/17 08:36 Dose: 750 mg Magnesium Hydroxide (Milk Of Magnesia) 30 ml PO HS PRN PRN Reason: Constipation Senna (Senna) 8.6 mg PO HS REBECCA Stop: 10/30/17 20:59 Last Admin: 09/06/17 21:12 Dose: 8.6 mg General: demented HEENT: NC/AT, PERRLA Neck: Supple Lungs: CTAB Cardiovascular: RRR, Normal S1, Normal S2, without murmur Abdomen: soft, non-tender, globular Neurological: lethargic, disorganized Internal Medicine Assmt/Plan - Assessment Assessment: HTN Asthma/COPD hx CVA/TIA Dyslipidemia Seizures Dysphagia osteoporosis glaucoma - Plan Plan: seizure precautions aspiration precautions continue current plan of care Nutritional Asmnt/Malnutr-PDOC - Dietary Evaluation Malnutrition Findings (Please click <Entered> for more info): Nutritional Asmnt/Malnutrition Start: 09/05/17 18: 14 Text: Status: Complete Freq: Document 09/05/17 18:14 LCHENG (Rec: 09/05/17 18:18 LCHENG [email or web address]) Nutritional Asmnt/Malnutrition Patient General Information Nutritional Screening Moderate Risk Diagnosis psychosis Pertinent Medical Hx/Surgical Hx HTN, asthma/COPD, CVA/TIA, dyslipidemia, seizures, dysphagia, Osteoporosis, glaucoma, encephalopathy Subjective Information Pt seen sleeping at time of visit. Pernotes, PO itnake 75% x 3 meals on 09/04 Current Diet Order/ Nutrition Support mech soft chopped ARNULFO Pertinent Medications colace, keppra, senna Pertinent Labs 08/31 Na 130, Cr 0.5, Glucose 118, Alb 3.7 Nutritional Hx/Data Height 5 ft 8 in Height (Calculated Centimeters) 172.7 Current Weight (lbs) 150 lb Weight (Calculated Kilograms) 68.0 Weight (Calculated Grams) 51181.9 [place] Body Weight 154 % [place] Body Weight 97 Body Mass Index (BMI) 22.8 Weight Status Approriate GI Symptoms GI Symptoms None Last BM 09/02 Difficult in: None Skin Integrity/Comment: scar, dryness Estimated Nutritional Goals BEE in Kcals: Using Current wt Calories/Kcals/Kg 25-30 Kcals Calculated 7696-7447 Protein: Using Current wt Protein g/k Protein Calculated 68 Fluid: ml 1700-2040ml (1ml/kcal) Nutritional Problem No current Nutrition Prob Problem N/A Malnutrition Alert Is there a minimum of two criteria No selected? Query Text:Check all the applicable criteria. A minimum of two criteria are recommended for diagnosis of either severe or non-severe malnutrition. Intervention/Recommendation Comments 1. Continue with current diet as ordered. 2. Monitor PO intake, wt, labs and skin integrity 3. F/U as low risk in 7 days, 09/12 Expected Outcomes/Goals Expected Outcomes/Goals 1. PO intake to meet at least 75% of nutritional needs. 2. Wt stability, skin to remain intact, labs to approach WNL.
--- NOTE | 2017-09-07 15:42 | Progress Notes ---
DATE: 09/07/2017 SUBJECTIVE: Staff was spoken to. The patient is interviewed. Mood is noted to be depressed. The patient is very drowsy, even when the psych medications have completely been stopped. The patient has not been given any Ativan or any Ambien any pain medication, but the patient is still showing with drowsiness. The patient is requested to have a medical followup and at this time the patient seems to be more of a medical issue rather than a psychiatric problem. ASSESSMENT: The patient is drowsy and sedated. PLAN: To closely monitor the patient request Dr. Michaud, to take a look at the patient. JOB# [id number]
--- NOTE | 2017-09-17 20:31 | Discharge Summary ---
DATE OF DISCHARGE: 09/07/2017 IDENTIFYING DATA: The patient is a 67-year-old -[place] male resident [facility] a [facility]. Information obtained by directly interviewing the patient as well as reviewing the admission papers. JUSTIFICATION OF HOSPITALIZATION: The patient is admitted on a voluntary basis in view of his agitation and aggressive behavior. CHIEF COMPLAINT: "I do not know." DIAGNOSIS AT THE TIME OF ADMISSION: AXIS I: Depressive disorder, not otherwise specified. AXIS II: None. AXIS III: As per Dr. Darby. HISTORY OF PRESENT ILLNESS: Please refer to the 08/31/2017 dictation done by me. Physical examination was done by Dr. Darby and is noted to be significant for patient having CVA, hypertension, asthma, COPD, dyslipidemia, seizures. HOSPITAL COURSE AND RESPONSE TO TREATMENT: The patient has been observed on inpatient unit, provided with supportive psychotherapy. The patient has been closely monitored on the inpatient unit. The patient has been noted to be very sedated with the pain medications and gabapentin. The patient has been closely monitored and the psychotropic medications have been gradually discontinued and patient has been maintained on the gabapentin 300 mg daily and the rest of the psych medications have been discontinued and patient started to do fairly well and the patient was discharged to [facility] with recommendation that he is going to be seeking treatment on an outpatient basis. MENTAL STATUS EXAMINATION: At the time of discharge, patient's mood is noted to be anxious. Affect is appropriate. Not suicidal or homicidal. Insight and judgment are noted to be fair. Impulse control is also noted to be fair at the time of the discharge. No major behavioral problems are noted. DIAGNOSES AT THE TIME OF DISCHARGE: AXIS I: Mood disorder, not otherwise specified. AXIS II: None. AXIS III: As per Dr. Darby. AFTERCARE PLAN: The patient is discharged to [facility] to be followed up on an outpatient basis. JOB# [id number]
== END 2017-09-07 14:45 | disposition home or self-care (01) | DRG 885 ==
LOC: ER 00:35 → GERO 02:00
PROVIDERS: ADMIT Psychiatry & Neurology Psychiatry; ATTEND Psychiatry & Neurology Psychiatry
DX: F33.9 Major depressive disorder, recurrent, unspecified (principal); J44.9 Chronic obstructive pulmonary disease, unspecified; R13.10 Dysphagia, unspecified; R56.9 Unspecified convulsions; F39 Unspecified mood [affective] disorder; I10 Essential (primary) hypertension; E78.5 Hyperlipidemia, unspecified; M81.0 Age-related osteoporosis without current pathological fracture; H40.9 Unspecified glaucoma; Z86.73 Personal history of transient ischemic attack (TIA), and cerebral infarction without residual deficits; Z79.51 Long term (current) use of inhaled steroids
CPT/HCPCS: 36415-UA; 71045-TC; 80053-TC; 80299-90; 82948-90; 84443-TC; 85025-TC; 93005; 94760; J7030; Z7610